=== PATIENT | male | born 1965 ===

== ENCOUNTER → 2017-09-04 | Day surgery (SDC) | payer BC ==
[~2017-09-04] MED LIST: Lidocaine Hydrochloride 5 ML INJ ONE; Metoprolol 1 mg/ml Inj IVP ONE; Midazolam 2 MG/2 ML VIAL ONE; Propofol 10 mg/ml Inj (20 ML) ONE
[2017-09-04 11:05] VITALS: BMI 23.1
[2017-09-04 14:15] VITALS: TEMP 97.3
[2017-09-04 15:13] VITALS: O2SAT 99
--- NOTE | 2017-09-04 15:16 | CP.PCM.PN ---
Subjective - Date & Time of Evaluation Date of Evaluation: 09/04/17 Time of Evaluation: 15:00 - Subjective Subjective: Pacu nurse called to report HR 110 with BP 170/110 evaluated the patient wihout symptoms. 12 leak EkG unremarkable lopresssor rmg IV given discussed with Dr Infante window framer. Hr 90 BP 165/100 patient well known to the practice asked for pateint to visit office for folow up within 48 hrs. patient educated for s/s cardiac emergency and instructed to follow up with cardiology. Objective - Vital Signs/Intake and Output Vital Signs (last 24 hours): Temp Pulse Resp BP Pulse Ox 97.3 F L 96 H 16 182/109 H 99 09/04/17 14:30 09/04/17 14:30 09/04/17 14:30 09/04/17 14:30 09/04/17 14:30 Intake and Output: 09/04/17 09/04/17 06:59 18:59 Intake Total 525 Balance 525
[2017-09-04 15:25] VITALS: BP 163/96; PULSE 98; RESP 17
--- NOTE | 2017-09-05 14:51 | CARD ---
APPROVED REPORT EKG Measurement Heart [id number] <Conclusion> Normal sinus rhythm Normal ECG
== END | disposition home or self-care (01) ==
LOC: C.ENDO 10:11
PROVIDERS: ATTEND Internal Medicine Gastroenterology
DX: Z12.11 Encounter for screening for malignant neoplasm of colon (principal); K64.1 Second degree hemorrhoids; R10.13 Epigastric pain; K29.70 Gastritis, unspecified, without bleeding
CPT/HCPCS: 43239; 45378; 82948; 88305; 88313; 88342; 93005; J2250; J2704

== ENCOUNTER 2017-11-11 08:49 | Day surgery (SDC) | payer BC ==
[2017-11-11 09:33] VITALS: BMI 23.0
[2017-11-11 09:55] VITALS: TEMP 97; O2SAT 100
[2017-11-11 14:36] VITALS: BP 145/81; PULSE 70; RESP 16
== END 2017-11-11 12:58 | disposition home or self-care (01) ==
LOC: C.ENDO 08:49
PROVIDERS: ATTEND Internal Medicine
DX: K64.8 Other hemorrhoids (principal); K58.0 Irritable bowel syndrome with diarrhea